=== PATIENT | female | born 1980 | race Caucasian/White ===

== ENCOUNTER → 2017-06-11 | Outpatient (CLI) | payer BC, MEDICAID ==
[~2017-06-11] MED LIST: ALPR.5T PO; CALC-20; CETI1TAB2; CPR250T PO; IBP600T1 PO; LOESTRIN; OXYC-12 PO; POTA75TA; POTA99TA7 PO; PREN1TAB39 PO; RNT150T; [UNRECOGNIZED DRUG - OTHER]
--- NOTE | 2017-06-11 17:22 | Diagnostic Imaging Report ---
INDICATION: Mirena. EXAMINATION: Transabdominal and transvaginal pelvic ultrasound was performed. FINDINGS: Best seen on the transvaginal views, the IUD device appears in good position. No endometrial pathology. The ovaries and adnexa appear unremarkable. There are no findings of torsion. There is no pelvic ascites or fluid collection. No fibroid or myometrial mass. IMPRESSION: Device in good position. No pathological finding demonstrated. Dictated on workstation # [id number]
== END ==
LOC: RAD 11:49
PROVIDERS: ATTEND Nurse Practitioner
DX: R10.2 Pelvic and perineal pain (principal); Z97.5 Presence of (intrauterine) contraceptive device
CPT/HCPCS: 76830; 76856